=== PATIENT | female | born 1960 | race American Indian/Alaskan Native ===

== ENCOUNTER 2017-05-20 11:12 | Day surgery (SDC) | payer OTHER ==
[2017-05-20 11:29] VITALS: BMI 37.9
[2017-05-20 12:30] LABS: HEMATOCRIT 35.8 % (34.0-47.0); MEAN CELL VOLUME 93.3 fl (81.0-99.0); MEAN CORPUSCULAR HEMOGLOBIN 30.3 pg (27.0-31.0); MEAN CORPUSCULAR HGB CONC 32.5 g/dL (33.0-37.0); RED CELL DISTRIBUTION WIDTH 13.9 % (11.5-14.5); WHITE BLOOD COUNT 8.4 K/uL (4.8-10.8)
[2017-05-20 12:49] LABS: PARTIAL THROMBOPLASTIN TIME 36.2 Seconds (25.6-37.1)
[2017-05-20] MEDS ORDERED: Lidocaine 1% Inj (20ml) ONE (13:39)
[2017-05-20 13:56] VITALS: RESP 18
--- NOTE | 2017-05-20 14:02 | CP.SDSHP ---
Same Day Surgery H & P - History Proposed Procedure: US guided FNA of right and left thyroid nodules Pre-Op Diagnosis: right and left thyroid nodules - Allergies Allergies: Allergies No Known Allergies Allergy (Verified 05/20/17 11:29) - Physical Exam Vital Signs: Vital Signs 05/20/17 05/20/17 05/20/17 11:51 11:54 13:55 Temperature 98.6 F 97.9 F Pulse Rate 87 87 61 Respiratory 20 18 Rate Blood Pressure 120/85 131/87 O2 Sat by Pulse 97 100 Oximetry - Impression Impression: Complex 2 cm right and 1.3 cm left thyroid nodules. Plan US guided FNA of right and left thyroid nodules Pt. Evaluated Today:Candidate for Anesthesia & Procedure: No - Date & Time Date: 05/20/17 Time: 13:35 Short Stay Discharge - Short Stay Discharge Admitting Diagnosis/Reason for Visit: E04.2 Referrals: Kristian Roth MD [Primary Care Provider] -
--- NOTE | 2017-05-20 14:03 | PCM.SURG1 ---
Surgeon's Initial Post Op Note - Surgeon's Notes Surgeon: Jonathan Frank MD Reliability Technologist: NONE Type of Anesthesia: Local Pre-Operative Diagnosis: right and left thyroid nodules Operative Findings: Complex 2 cm right and 1.3 cm left thyroid nodules Post-Operative Diagnosis: right and left thyroid nodules Operation Performed: US guided FNA of right and left thyroid nodules Specimen/Specimens Removed: 25 g FNA x 4 passes per nodule Estimated Blood Loss: EBL {In ML}: 0 Blood Products Given: N/A Drains Used: No Drains Post-Op Condition: Good Date of Surgery/Procedure: 05/20/17 Time of Surgery/Procedure: 14:00
[2017-05-20 14:53] VITALS: BP 125/79; PULSE 70; TEMP 97.6; O2SAT 99
--- NOTE | 2017-05-21 12:08 | US ---
PROCEDURE: Date of Procedure: 05/20/2017 PROCEDURE: 1. Ultrasound guided FNA of left thyroid nodule, CPT 91847 2. Ultrasound guided FNA of RIGHT thyroid nodule, 3. Ultrasound guidance for FNA, 59031 Medications: 4CC 1% Lidocaine HISTORY: Enlarged thyroid nodules. TECHNIQUE: Following informed consent and procedure time-out, a limited ultrasound patient's neck confirmed the presence of a 1.5 cm complex solid right thyroid nodule. Also present is a complex, predominantly solid left thyroid nodule measuring 1.3 cm. After the patient's neck was prepped and draped in the usual sterile fashion, the skin was anesthetized with 1% lidocaine. Ultrasound-guided fine needle aspiration was then performed of the dominant left thyroid nodule. A total of 4 passes were made into the nodule with 27 gauge needle under ultrasound guidance. The FNA specimen was sent for routine pathology. Ultrasound guided FNA was then performed of the dominant right thyroid nodule. Again 4 passes were made into the nodule with 25 gauge needle. The FNA specimen was sent for routine pathology. Post biopsy ultrasound showed no hematoma. IMPRESSION: Ultrasound-guided FNA of the dominant right and left thyroid nodules.
== END 2017-05-20 15:50 | disposition home or self-care (01) ==
LOC: H.OPSURG 11:12
PROVIDERS: ATTEND Surgery
DX: E04.2 Nontoxic multinodular goiter (principal)